=== PATIENT | female | born 1975 | race Caucasian/White ===

== ENCOUNTER → 2016-09-15 | Outpatient (CLI) | payer OTHER ==
--- NOTE | 2016-09-15 10:41 | MA ---
Screening Digital Mammogram With iCAD Analysis Clinical Indications: Routine screening. Technique: Standard cephalocaudal and mediolateral oblique projections were obtained. This examinatio n was processed by the iCAD computer aided detection system. Comparison: No prior studies are available for comparison; new baseline examination. Breast density: Type C; Heterogeneously dense. Findings: CAD was reviewed. On the left there is an asymmetry in the upper anterior breast noted on t he oblique view. On the right, nodular asymmetry is present in the anterior breast. No suspicious ally rocalcifications are seen. Impression: Asymmetries bilaterally require further evaluation, BI-RADS 0 Recommendation: Spot compression assessment bilaterally with ultrasound suggested if an abnormality p ersists on diagnostic evaluation. [facility] will send a result letter to the patient. Dense breast parenchyma diminishes mammographic sensitivity. Negative mammography should not preclude additional workup of a clinically suspicious finding. The patient's information is entered into a reminder system with a target due date for her next mammo gram.
== END ==
LOC: BRMIMAGING 08:09
PROVIDERS: ATTEND Physician Assistant Medical
DX: Z12.31 Encounter for screening mammogram for malignant neoplasm of breast (principal)
CPT/HCPCS: G0202

== ENCOUNTER → 2016-09-21 | Outpatient (CLI) | payer OTHER ==
--- NOTE | 2016-09-21 10:48 | MA ---
Bilateral Diagnostic Digital Mammography Clinical History: 41-year-old female anticipating reduction mammoplasties, noted to have a right-side d periareolar nodular opacity as well as a one-view finding demonstrating some parenchymal asymmetry in the left breast on a screening mammogram. There is no known family history of breast cancer. Technique: Spot compression CC and MLO views of the right and left breasts, as well as true mediolate ral views of each breast were obtained and compared to a baseline screening study of September 15, 2016 . Additionally, this examination was processed by the [employer] computer-aided detection system. Breast Density: Type C - 50-75%. CAD Evaluation: Reviewed. Findings: In the subareolar aspect of the right breast, there is a persistent rounded opacity seen trevizo perior and lateral in the anterior portion of the breast. Ultrasound will be performed to determine i f this is cystic or solid. With respect to the parenchymal asymmetry in the superior left breast noted on the MLO view, this is much less conspicuous with spot compression views and on a true mediolateral view. Nonetheless, sonog osmel will also be performed of the upper-outer left breast to assure that there is no underlying abn ormality. Impression: Needs additional imaging of each breast. BI-RADS Category 0, incomplete. Recommendation: Supplementary targeted breast sonography. [facility] will send a result letter to the patient.
--- NOTE | 2016-09-21 13:04 | US ---
Right Breast Sonography Clinical History: 41-year-old anticipating reduction mammoplasties, noted to have a periareolar nodul e seen mammographically. Determine if this is cystic or solid. The patient also had some likely benig n parenchymal asymmetry in the superior left breast, which is less pronounced on supplementary views. Determine if there is sonographic abnormality. Technique: A linear 12 MHz transducer was used to sonographically evaluate the areas of concern in th e right and left breast. Color Doppler is used. Both the process supervisor and the sonologist performed the exam. Comparison study: Diagnostic mammography from earlier this morning. Findings: Right Breast Sonography: In the 9:30 position, 1 cm from the nipple, there is a lobulated hypoechoic solid nodule measuring 1.3 x 1.0 x 1.3 cm. Trace vascular flow is seen along the margin of this struc ture. Ultrasound-guided core biopsy is recommended for histologic sampling. Left Breast Sonography: In the upper outer aspect, scan from 12-3 o'clock, there is no sonographic ab normality. The mammographic findings are deemed likely-benign (BI-RADS Category 3), and a 6-month uni lateral left mammography is recommended. I discussed these findings and recommendations with the patient. She is more immediately concerned re garding right shoulder pain and potential right rotator cuff pathology. She will need to have the rig ht breast biopsied before meeting again with her breast surgeon. I also conveyed this information to Stephanie Davila PA-C, and requested a prescription to be sent to the [facility] for the ultraso und-guided procedure. Impression: 1. BI-RADS Category 4 finding, right breast 9:30, 1 cm from the nipple. Ultrasound-guided core biopsy is recommended for histologic sampling. 2. Probably-benign (BI-RADS Category 3) mammographic findings, with no sonographic correlate in the l eft breast. Unilateral left mammography in 6 months is suggested.
== END ==
LOC: BRMIMAGING 09:49
PROVIDERS: ATTEND Physician Assistant Medical
DX: R92.8 Other abnormal and inconclusive findings on diagnostic imaging of breast (principal)
CPT/HCPCS: 76641-PO; G0204

== ENCOUNTER → 2016-10-18 | Outpatient (CLI) | payer OTHER ==
[~2016-10-18] MED LIST: THROMBIN (BOVINE) 5,000 UNIT VIAL TP ONE; diphenhydrAMINE 25 MG CAP PO ONE
== END ==
LOC: FIMAGING 11:40
PROVIDERS: ATTEND Physician Assistant Medical
PROC: 0HBT3ZX Excision of Right Breast, Percutaneous Approach, Diagnostic (ICD-10-PCS; principal; 2016-10-18)
DX: D24.1 Benign neoplasm of right breast (principal)
CPT/HCPCS: G0206